=== PATIENT | female | born 1975 | race Caucasian/White ===

== ENCOUNTER 2016-06-28 16:56 | Emergency (ER) | payer BC ==
[2016-06-28 17:05] VITALS: RESP 18
[2016-06-28] MEDS ORDERED: SODIUM CHLORIDE 0.9% 1,000 ML IV STA (18:13)
[2016-06-28] MEDS ORDERED: MAG HYDROX/AL HYDROX/SIMETH 30 ML, HYOSCYAMINE ELIXIR 10 ML, CIMETIDINE HCL 300 MG PO STA ×3 (18:13)
[2016-06-28] MEDS ORDERED: ACETAMINOPHEN TAB 500 MG TAB PO STA (18:13)
--- NOTE | 2016-06-28 18:19 | ED ---
Abdominal Pain HPI - General Chief Complaint: Abdominal Pain Stated Complaint: Abd Pain Time Seen by Provider: 06/28/16 18:00 Source: EMS, RN notes reviewed Mode of arrival: EMS Limitations: no limitations - History of Present Illness Initial Comments: 41-year-old female presents to the emergency department with a chief complaint of abdominal pain. Patient states she took her first dose of Tamiflu after she was diagnosed with influenza and developed some abdominal discomfort. Patient does admit to a history of gastritis in the past states that it felt something like that but worst. Patient states she did have nausea with that. Patient states she also took her cough cold medicine Phenergan with codeine which did make her drowsy as well. Patient states she was concerned if this was related to medicine or something else so she thought that she should be seen. Patient states that she is not currently having any other symptoms. Patient denies any difficulty in breathing with this. Patient states that she was concerned due to the symptoms associated came in to be evaluated. Patient states she did take Tylenol today for fever. Patient denies any recent shortness of breath, chest pain, back pain, numbness or tingling, dysuria or hematuria, constipation or diarrhea, headaches or visual changes, or any other current symptoms. - Related Data Home Medications Medication Instructions Recorded Confirmed Multivitamins, Thera [Multivitamin] 1 tab PO DAILY 06/28/16 06/28/16 Oseltamivir [Tamiflu] 75 mg PO Q12HR 06/28/16 06/28/16 Promethazine HCl/Codeine 10 ml PO TID PRN 06/28/16 06/28/16 [Prometh-Codein 6.25-10 mg/5 ml] Allergies Allergy/AdvReac Type Severity Reaction Status Date / Time amoxicillin [Amoxicillin] Allergy Rash/Hives Verified 06/28/16 17:13 niacin Allergy Anaphylaxis Verified 06/28/16 17:13 Review of Systems ROS Statement: Those systems with pertinent positive or pertinent negative responses have been documented in the HPI. ROS Other: All systems not noted in ROS Statement are negative. Past Medical History Past Medical History: No Reported History Additional Past Medical History / Comment(s): Irritable bowel syndrome History of Any Multi-Drug Resistant Organisms: None Reported Past Surgical History: Section, Cholecystectomy Additional Past Surgical History / Comment(s): Dilation and curettage Past Anesthesia/Blood Transfusion Reactions: Previous Problems w/ Anesthesia Past Psychological History: No Psychological Hx Reported Smoking Status: Never smoker Past Alcohol Use History: None Reported Past Drug Use History: None Reported - Past Family History Mother Additional Family Medical History / Comment(s): pt's mother had epilepsy Father Additional Family Medical History / Comment(s): pt's father had cardiac problems General Exam - General Exam Comments Initial Comments: General: The patient is awake and alert, in no distress, and does not appear acutely ill. Eye: Pupils are equal, round and reactive to light, extra-ocular movements are intact; there is normal conjunctiva bilaterally. No signs of icterus. Ears, nose, mouth and throat: There are moist mucous membranes and no oral lesions. Neck: The neck is supple, there is no tenderness. Cardiovascular: There is a regular rate and rhythm. No murmur, rub or gallop is appreciated. Respiratory: Lungs are clear to auscultation, respirations are non-labored, breath sounds are equal. No wheezes, stridor, rales, or rhonchi. Gastrointestinal: Soft, non-distended, non-tender abdomen without masses or organomegaly noted. There is no rebound or guarding present. No CVA tenderness. Bowel sounds are unremarkable. Back: There is no tenderness to palpation in the midline. There is no obvious deformity. No rashes noted. Musculoskeletal: Normal ROM, no tenderness, There is no pedal edema. There is no calf tenderness or swelling. Sensation intact. Pulses equal bilaterally 2+. Neurological: CN II-XII intact, There are no obvious motor or sensory deficits. Coordination appears grossly intact. Speech is normal. Skin: Skin is warm and dry and no rashes or lesions are noted. Psychiatric: Cooperative, appropriate mood & affect, normal judgment. Limitations: no limitations Course Vital Signs 06/28/16 06/28/16 16:57 19:40 Temperature 97.9 F 97.1 F L Pulse Rate 108 H 101 H Respiratory 18 18 Rate Blood Pressure 113/77 113/75 O2 Sat by Pulse 97 97 Oximetry Medical Decision Making - Medical Decision Making 41-year-old female presents complaining of abdominal pain drowsiness after taking the first dose of her medications. Tamiflu does have a side effect of GI upset which didn't make sense the patient's abdominal pain and nausea. Phenergan with codeine can cause drowsiness. We did discuss that her symptoms are most consistent with a side effect medication. Labwork was reviewed and she was given a GI cocktail. Patient is feeling 100% after the GI cocktail. We discussed lab results discussed follow-up for repeat sure that everything normalizes liver. Due to the virus. Patient stated that she understood all her questions have been answered. She will be discharged. - Lab Data Result diagrams: 06/28/16 17:05 06/28/16 17:05 Lab Results 06/28/16 06/28/16 Range/Units 17:05 17:05 WBC 10.5 (3.8-10.6) k/uL RBC 4.84 (3.80-5.40) m/uL Hgb 11.9 (11.4-16.0) gm/dL Hct 37.7 (34.0-46.0) % MCV 77.9 L (80.0-100.0) fL MCH 24.5 L (25.0-35.0) pg MCHC 31.5 (31.0-37.0) g/dL RDW 13.7 (11.5-15.5) % Plt Count 247 (150-450) k/uL Neutrophils % 88 % Lymphocytes % 5 % Monocytes % 5 % Eosinophils % 1 % Basophils % 0 % Neutrophils # 9.2 H (1.3-7.7) k/uL Lymphocytes # 0.5 L (1.0-4.8) k/uL Monocytes # 0.6 (0-1.0) k/uL Eosinophils # 0.1 (0-0.7) k/uL Basophils # 0.0 (0-0.2) k/uL Hypochromasia Moderate Sodium 138 (137-145) mmol/L Potassium 4.0 (3.5-5.1) mmol/L Chloride 105 (98-107) mmol/L Carbon Dioxide 22 (22-30) mmol/L Anion Gap 11 mmol/L BUN 14 (7-17) mg/dL Creatinine 0.40 L (0.52-1.04) mg/dL Est GFR (MDRD) Af Amer >60 (>60 ml/min/1.73 sqM) Est GFR (MDRD) Non-Af >60 (>60 ml/min/1.73 sqM) Glucose 128 H (74-99) mg/dL Calcium 8.0 L (8.4-10.2) mg/dL Total Bilirubin 0.5 (0.2-1.3) mg/dL AST 94 H (14-36) U/L ALT 67 H (9-52) U/L Alkaline Phosphatase 106 (38-126) U/L Total Protein 7.7 (6.3-8.2) g/dL Albumin 3.8 (3.5-5.0) g/dL Amylase 45 (30-110) U/L Lipase 28 (23-300) U/L Disposition Clinical Impression: Influenza, Medication side effect, Gastritis Disposition: HOME SELF-CARE Condition: Stable Instructions: Influenza (ED) Additional Instructions: Please use medication as discussed. Please follow up with family doctor if symptoms have not improved over the next two days. Please return to the emergency room if your symptoms increase or worsen or for any other concerns. Referrals: Chicho Hernandez Jr, [Primary Care Provider] - 1-2 days Time of Disposition: 19:46
[2016-06-28 18:28] LABS: Basophils % (A) 0 %; CH 24.3; CHCM 31.2; Eosinophils # (A) 0.1 k/uL (0-0.7); Eosinophils % (A) 1 %; HCT 37.7 % (34.0-46.0); HDW 2.88; HGB 11.9 gm/dL (11.4-16.0); Hypochromasia Moderate; Luc # (Auto) 0.17; Luc % (Auto) 2; Lymphocytes # (A) 0.5 k/uL (1.0-4.8); Lymphocytes % (A) 5 %; MCH 24.5 pg (25.0-35.0); MCHC 31.5 g/dL (31.0-37.0); MCV 77.9 fL (80.0-100.0); Mean Platelet Volume 6.6; Monocytes # (A) 0.6 k/uL (0-1.0); Monocytes % (A) 5 %; Neutrophils # (A) 9.2 k/uL (1.3-7.7); Neutrophils % (A) 88 %; RBC 4.84 m/uL (3.80-5.40); RDW 13.7 % (11.5-15.5); WBC 10.5 k/uL (3.8-10.6); WBC (Perox) 10.88
[2016-06-28 18:51] LABS: ALT 67 U/L (9-52); AST 94 U/L (14-36); Alkaline Phosphatase 106 U/L (38-126); Amylase 45 U/L (30-110); Anion Gap 11 mmol/L; Blood Urea Nitrogen 14 mg/dL (7-17); Carbon Dioxide 22 mmol/L (22-30); Chloride 105 mmol/L (98-107); Glucose 128 mg/dL (74-99); Non-African American GFR(MDRD) >60 (>60 ml/min/1.73 sqM); Sodium 138 mmol/L (137-145); Total Bilirubin 0.5 mg/dL (0.2-1.3); Total Protein 7.7 g/dL (6.3-8.2)
[2016-06-28 19:42] VITALS: BP 113/75; PULSE 101; TEMP 97.1
== END 2016-06-28 20:15 | disposition home or self-care (01) ==
LOC: EC 16:56
DX: J11.1 Influenza due to unidentified influenza virus with other respiratory manifestations (principal); T37.5X5A Adverse effect of antiviral drugs, initial encounter; K29.70 Gastritis, unspecified, without bleeding; Z88.0 Allergy status to penicillin; Z88.8 Allergy status to other drugs, medicaments and biological substances
CPT/HCPCS: 36415; 80053; 82150; 83690; 85025; 96360; 96361; 99284

== ENCOUNTER → 2019-06-18 | Outpatient (CLI) | payer BC ==
--- NOTE | 2019-06-19 13:37 | MM ---
Reason for exam: screening (asymptomatic). Last mammogram was performed 7 years and 10 months ago. History: Family history of breast cancer in maternal grandmother. Physical Findings: A clinical breast exam by your physician is recommended on an annual basis and results should be correlated with mammographic findings. MG 3D Screening Mammo W/Cad Bilateral CC, MLO, and XCCL view(s) were taken. Prior study comparison: August 04, 2011, CAD bilateral diagnostic mammogram. There is a stable left lower outer quadrant mass at middle depth back to 2011. No suspicious abnormality. No significant changes when compared with prior studies. ASSESSMENT: Benign, BI-RAD 2 RECOMMENDATION: Routine screening mammogram of both breasts in 1 year.
== END | disposition home or self-care (01) ==
LOC: RADMAMWWP 10:21
PROVIDERS: ATTEND Obstetrics & Gynecology
DX: Z12.31 Encounter for screening mammogram for malignant neoplasm of breast (principal)
CPT/HCPCS: 77063; 77067

== ENCOUNTER → 2020-02-18 | Outpatient (CLI) | payer BC ==
--- NOTE | 2020-02-18 07:59 | MR ---
MRI CERVICAL SPINE: CLINICAL HISTORY: Contusion/trauma; disk herniation, C7 myotonal weakness bilaterally, imbalance all per order. TECHNIQUE: Multiplanar, multisequence imaging of the cervical spine is performed without IV contrast. Neck pain and stiffness for 3 years causing pain or weakness into right arm and fingers per patient. COMPARISON: None. FINDINGS: Coronal images show levoconvex scoliotic curvature persisting centered upper thoracic spine . Sagittal images suboptimal as there is motion artifact degradation. There is slight grade 1 retroli sthesis C3 on C4, C4 on C5, C5 on C6, and C6 on C7. The cervical and upper thoracic spinal cord is n ormal in caliber and signal. The vertebral body heights are normal. Mild multilevel disc space narrow ing. The bone marrow signal intensity is within normal limits. Axial images at C2-C3 level show left-sided uncovertebral facet degenerative change causing mild left -sided neural foraminal narrowing. Axial images at C3-C4 level show left paracentral disc protrusion and spondylolisthesis minimally eff acing the anterior thecal sac. Mild left greater than right bilateral neural foraminal narrowing. Axial images at C4-C5 level shows spondylolisthesis and left paracentral spur disc complex mildly eff acing anterior thecal sac and causing mild to moderate left-sided neural foraminal narrowing. Axial images at C5-C6 show spondylolisthesis with broad-based posterior disc protrusion effacing ante rior thecal sac and causing moderate left greater than right bilateral neuroforaminal narrowing. Axial images at C6-C7 level show spondylolisthesis with most prominent broad-based posterior disc pro trusion effacing anterior thecal sac and causing moderate right and mild left-sided neural foraminal narrowing. Effacement extends to ventral surface of spinal cord. Axial images at C7-T1 level appear within normal limits. IMPRESSION: Multilevel spondylolisthesis and degenerative changes in the cervical spine as detailed a clarisa, findings greatest at C5-C6 and C6-C7 levels.
[2020-02-18 18:52] LABS: Hemoglobin A1C 5.4 % (4.0-6.0)
[2020-02-18 21:58] LABS: Protein, Total 7.4 g/dL (6.2-8.2)
[2020-02-19 14:06] LABS: Albumin 4.06 g/dL (3.80-4.90); Gamma Globulin 1.26 g/dL (0.70-1.50)
== END | disposition home or self-care (01) ==
LOC: RADMRIMAIN 06:42
PROVIDERS: ATTEND Psychiatry & Neurology Neurology
DX: M43.12 Spondylolisthesis, cervical region (principal); M47.812 Spondylosis without myelopathy or radiculopathy, cervical region; G62.9 Polyneuropathy, unspecified; R73.9 Hyperglycemia, unspecified; R53.1 Weakness; R25.2 Cramp and spasm
CPT/HCPCS: 72141; 82550; 82607; 82747; 83036; 84165; 84443; 85652; 86038; 86618